=== PATIENT | female | born 1975 | race Two or more races ===

== ENCOUNTER 2016-09-24 09:22 | Emergency (ER) | payer SELFPAY ==
[2016-09-24 09:08] LABS: URINE SOURCE CLEAN CATCH
[2016-09-24 09:14] LABS: URINE APPEARANCE CLEAR; URINE BILIRUBIN NEG (NEG); URINE BLOOD 1+ (NEG); URINE COLOR YELLOW; URINE GLUCOSE NEG (NEG); URINE KETONE NEG (NEG); URINE LEUKOCYTE ESTERASE 3+ (NEG); URINE NITRATE NEG (NEG); URINE PH 6.5 (5-8); URINE PROTEIN NEG (NEG); URINE SPECIFIC GRAVITY 1.008 (1.003-1.035); URINE UROBILINOGEN 0.2 MG/DL (NEG)
[2016-09-24 09:16] LABS: CULTURE INDICATED? YES; URBCS1 AUWI 0-2 /[HPF] (0-2); URINE BACTERIA AUWI 1+ (NEGATIVE); URINE SQUAMOUS EPITHELIAL CELL NONE SEEN /[HPF]
[~2016-09-24 09:22] MED LIST: AUGMENTIN; BACTRIM DS TABL1 TA1 PO; CIPRO PO; FLEXERIL PO; FLEXERIL10 M1 PO; IBUPROFEN PO; KETOPROFEN PO; METRONIDAZOLE; MOBIC; MOTRIN600 M2; NAPROSYN500 MG PO; NO MEDICATIONS; PYRIDIUM PO; TRAMADOL HCL50 M1 PO; ULTRAM PO; VICODIN 5/500 T1 TAB PO; VOLTAREN50 MG PO; ZITHROMAX PO; ZOFRAN ODT4 MG PO
== END 2016-09-24 09:29 | disposition home or self-care (01) ==
LOC: CED 09:22
PROVIDERS: Emergency Medicine
DX: R20.2 Paresthesia of skin (principal); M54.5 Low back pain; N30.00 Acute cystitis without hematuria
CPT/HCPCS: 81003; 84703; 87086; 99283